=== PATIENT | female | born 1945 | race Caucasian/White ===

== ENCOUNTER → 2018-07-11 13:17 | Outpatient (CLI) | payer MEDICARE, OTHER ==
[2014-10-29 08:17] VITALS: BMI 28.4
[~2018-07-11 13:17] MED LIST: AMBIEN10 MG PO; AMBIEN5 MG PO; CYMBALTA20 MG PO; ESTRACE 0.5 MG0.5 MG PO; MAXALT5 MG PO; PRILOSEC20 MG PO; ZETIA10 MG PO
== END | disposition home or self-care (01) ==
LOC: D.RAD 13:17
PROVIDERS: ATTEND Internal Medicine Pulmonary Disease
DX: Z87.09 Personal history of other diseases of the respiratory system (principal)

== ENCOUNTER → 2018-10-26 09:45 | Outpatient (CLI) | payer MEDICARE, OTHER ==
[2014-10-29 08:17] VITALS: BMI 28.4
== END | disposition home or self-care (01) ==
LOC: D.RT 09-20 11:00
PROVIDERS: ATTEND Internal Medicine Pulmonary Disease
DX: Z87.09 Personal history of other diseases of the respiratory system (principal); R06.00 Dyspnea, unspecified